=== PATIENT | male | born 1950 | race Caucasian/White ===

== ENCOUNTER → 2016-04-12 | Outpatient (CLI) | payer MEDICARE, OTHER ==
[2016-04-12 09:05] LABS: Basophils % (A) 1 %; CH 31.7; CHCM 33.8; Eosinophils # (A) 0.1 k/uL (0-0.7); Eosinophils % (A) 2 %; HCT 44.1 % (39.0-53.0); HDW 2.85; HGB 14.5 gm/dL (13.0-17.5); Luc # (Auto) 0.15; Luc % (Auto) 3; Lymphocytes # (A) 1.3 k/uL (1.0-4.8); Lymphocytes % (A) 26 %; MCHC 32.9 g/dL (31.0-37.0); MCV 94.3 fL (80.0-100.0); Mean Platelet Volume 7.7; Monocytes # (A) 0.3 k/uL (0-1.0); Monocytes % (A) 6 %; Neutrophils # (A) 3.2 k/uL (1.3-7.7); Neutrophils % (A) 63 %; RBC 4.67 m/uL (4.30-5.90); RDW 13.4 % (11.5-15.5); WBC 5.1 k/uL (3.8-10.6); WBC (Perox) 5.29
[2016-04-12 09:54] LABS: ALT 44 U/L (21-72); AST 35 U/L (17-59); Alkaline Phosphatase 57 U/L (38-126); Amylase 72 U/L (30-110); Anion Gap 10 mmol/L; Blood Urea Nitrogen 13 mg/dL (9-20); Calcium 9.6 mg/dL (8.4-10.2); Carbon Dioxide 31 mmol/L (22-30); Chloride 106 mmol/L (98-107); Cholesterol 193 mg/dL (<200); Glucose 95 mg/dL (74-99); HDL Cholesterol 69 mg/dL (40-60); Non-African American GFR(MDRD) >60 (>60 ml/min/1.73 sqM); Potassium 4.5 mmol/L (3.5-5.1); Sodium 147 mmol/L (137-145); Total Bilirubin 0.5 mg/dL (0.2-1.3); Total Protein 7.3 g/dL (6.3-8.2); Triglycerides 70 mg/dL (<150)
== END | disposition home or self-care (01) ==
LOC: LABWHC1 07:58
PROVIDERS: ATTEND Family Medicine
DX: R03.0 Elevated blood-pressure reading, without diagnosis of hypertension (principal)
CPT/HCPCS: 36415; 80053; 80061; 82150; 83690; 84439; 84443; 85025; 86677

== ENCOUNTER → 2019-09-05 | Outpatient (CLI) | payer MEDICARE, OTHER ==
--- NOTE | 2019-09-05 14:23 | MR ---
EXAMINATION TYPE: MR lumbar spine wo/w con DATE OF EXAM: 09/05/2019 COMPARISON: NONE HISTORY: Lower back pain, radiates into lt buttock, weakness for 5 years per patient. TECHNIQUE: Multiplanar, multisequence images of the lumbar spine is performed without and with IV contrast, util izing 7.5 mL intravenous Gadavist FINDINGS: Sagittal images of the lumbar spine show vertebral body heights and alignment to appear sat isfactory. Multilevel disc desiccation with mild to moderate disc space narrowing L2-L3 and mild disc space narrowing L3-L4 level with vacuum disc phenomenon. Mild to moderate disc space narrowing L5-S1 level. The conus medullaris is normal in position and signal ending at the L1-L2 disc space. Large hemangioma involving the L2 vertebra extends to left of midline. No suspicious postcontrast enhanceme nt is seen. Mild/moderate multilevel spurring at the L2-L3 level. Axial images at the T12-L1 and L1-L2 levels are within normal limits. Axial images at the L2-L3 level show mild/moderate broad disc bulge mildly effacing anterior thecal s ac and causing mild bilateral anterior inferior neural foraminal narrowing. Mild facet arthropathy bi laterally. Axial images at the L3-L4 level show [id number] facet degenerative changes bilaterally. There i s mild broad disc bulge mildly effacing anterior thecal sac. There is mild right greater than left bi lateral inferior neural foraminal narrowing. Axial images at L4-L5 level show moderate facet degenerative changes bilaterally. Spinal canal is pre served. Bilateral neural foramina are patent. Axial images at the L5-S1 level show mild to moderate facet degenerative changes bilaterally. There i s tiny central disc protrusion. Spinal canal is preserved. Bilateral neural foramina are patent. IMPRESSION: Multilevel degenerative changes mid to lower lumbar spine as detailed above most prominen t at L2-L3 level. No suspicious enhancement noted.
== END | disposition home or self-care (01) ==
LOC: RADMRIMAIN 10:09
PROVIDERS: ATTEND Family Medicine
DX: M47.816 Spondylosis without myelopathy or radiculopathy, lumbar region (principal)
CPT/HCPCS: 72158; A9585

== ENCOUNTER → 2020-02-14 | Outpatient (CLI) | payer MEDICARE, OTHER ==
--- NOTE | 2020-02-14 15:20 | XR ---
EXAMINATION TYPE: XR chest 2V DATE OF EXAM: 02/14/2020 COMPARISON: Prior chest x-ray 12/25/2013 HISTORY: Cough and wheezing TECHNIQUE: Frontal and lateral views of the chest are obtained. FINDINGS: There is no focal air space opacity, pleural effusion, or pneumothorax seen. The cardiac silhouette size is within normal limits. There is increased AP diameter of the chest, retrosternal a irspace, lung volume which may be indicative of underlying COPD. Bronchial wall thickening. Aorta is dense. The osseous structures are stable, there chronic rib deformities consistent with old fractures which have healed, there is thoracic spondylosis. IMPRESSION: Correlate for bronchitis.
== END | disposition home or self-care (01) ==
LOC: RADXRMAIN 10:39
PROVIDERS: ATTEND Nurse Practitioner
DX: J18.9 Pneumonia, unspecified organism (principal)
CPT/HCPCS: 71046

== ENCOUNTER → 2020-10-28 | Outpatient (CLI) | payer MEDICARE, OTHER ==
--- NOTE | 2020-10-28 12:33 | MR ---
EXAMINATION TYPE: MR lumbar spine wo con DATE OF EXAM: 10/28/2020 COMPARISON: 09/05/2019 HISTORY: Low back pain TECHNIQUE: T1 and T2 axial and sagittal images of the lumbar spine are submitted. FINDINGS: Sagittal images of the lumbar spine show vertebral body heights and alignment to appear sat isfactory. Multilevel disc desiccation with mild to moderate disc space narrowing L2-L3 and mild disc space narrowing L3-L4 level with vacuum disc phenomenon. Mild to moderate disc space narrowing L5-S1 level. The conus medullaris is normal in position and signal ending at the L1-L2 disc space. Large h emangioma involving the L2 vertebra extends to left of midline. No suspicious postcontrast enhancemen t is seen. Mild/moderate multilevel spurring at the L2-L3 level. Multilevel facet arthropathy. Axial images at the T12-L1 and L1-L2 levels are within normal limits. Axial images at the L2-L3 level show mild/moderate broad disc bulge mildly effacing anterior thecal s ac and causing mild bilateral anterior inferior neural foraminal narrowing. Mild facet arthropathy bi laterally. Axial images at the L3-L4 level show [id number] facet degenerative changes bilaterally. There i s mild broad disc bulge mildly effacing anterior thecal sac. There is mild right greater than left bi lateral inferior neural foraminal narrowing. Axial images at L4-L5 level show moderate facet degenerative changes bilaterally. Spinal canal is pre served. Bilateral neural foramina are patent. Axial images at the L5-S1 level show mild to moderate facet degenerative changes bilaterally. There i s tiny central disc protrusion. Spinal canal is preserved. Bilateral neural foramina are patent. IMPRESSION: 1. Stable multilevel degenerative disc disease with multilevel disc bulging as discussed above. No ca nal stenosis or discrete herniation
== END | disposition home or self-care (01) ==
LOC: RADMRIMAIN 10:25
PROVIDERS: ATTEND Orthopaedic Surgery
DX: M51.27 Other intervertebral disc displacement, lumbosacral region (principal); M51.36 Other intervertebral disc degeneration, lumbar region; M47.817 Spondylosis without myelopathy or radiculopathy, lumbosacral region; M99.73 Connective tissue and disc stenosis of intervertebral foramina of lumbar region
CPT/HCPCS: 72148